=== PATIENT | female | born 1995 | race Hispanic/Latino ===

== ENCOUNTER 2022-07-18 09:32 | Emergency (ER) | payer SELFPAY ==
--- OUTSIDE RECORDS SUMMARY | 2022-07-18 09:35 | XMS REPORT | Continuity of Care Document ---
:1995 Author Organization [facility] t Address [address] [place] [address] Care Team Providers Name Role Phone LOUIS SALOMON Attending Clinician Unavailable MARSHALL AGUILA Attending Clinician Unavailable LIZZY HALE Attending Clinician Unavailable MEAGHAN PARK Attending Clinician Unavailable LAB90 Attending Clinician Unavailable Mayur SAMUEL, Meaghan Raymundo Attending Clinician [phone] PURNIMA Attending Clinician Unavailable KRISTAL Attending Clinician Unavailable Wisam Attending Clinician Unavailable PURNIMA Admitting Clinician Unavailable KRISTAL Admitting Clinician Unavailable Wisam Admitting Clinician Unavailable Payers Payer Name Policy Type Policy Number Effective Date Expiration Date Lisa azevedo BCBS 2 [id number] 2022 00:00:00 Problems Condition Condition Condition Status Onset Resolution Last Treating Co mments Source Name Details Category Date Date Treatment Clinician Date Vitamin D Vitamin D Problem Active [place] deficiency Deficiency 8-04 da 00:00: [facility] Allergies, Adverse Reactions, Alerts This patient has no known allergies or adverse reactions. Social History Smoking Status Start Date Stop Date Source Never Smoker [facility] Medications Ordered Filled Start Stop Current Ordering Indication Dosage Frequency Signature Comments Components Source Medication Medication Date Date Medication? Clinician (SIG) Name Name Vitamin D2 Vitamin D2 No 1capsul Q1W Vitamin D2 [place] 1,250 mcg 1,250 mcg e(s) 1,250 mcg da (50,000 (50,000 (50,000 [facility] p unit) unit) unit) al capsule capsule capsule Health Take 1 Take 1 Take 1 Outreac capsule capsule capsule h every week every week every week Program by oral by oral by oral route. route. route. Vital Signs Vital Name Observation Time Observation Value Comments Source BP Diastolic 2022-02-05 00:00:00 74 [facility]Hg[facility] Height 2022-02-05 00:00:00 61 [[facility]_i[facility] BMI (Body Mass 2022-02-05 00:00:00 34.6 kg/m2 [place] 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 Index) [facility] BP Systolic 2022-02-05 00:00:00 118 mm[Hg] [facility] [facility] Body Weight 2022-02-05 00:00:00 2934 [facility] BP Diastolic 2022-01-15 00:00:00 76 mm[facility]Hg[facility] Height 2022-01-15 00:00:00 61 [in_i] [place] [facility] BMI (Body Mass 2022-01-15 00:00:00 35.2 kg/m2 [facility] 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 Z[facility]astrian Index) [facility] BP Systolic 2022-01-15 00:00:00 114 mm[Hg] [place] [facility] Body Weight 2022-01-15 00:00:00 2979 [oz_av] [place] [facility] Height 2021-09-12 00:00:00 61 [in_i] [place] [facility] BP Diastolic 2020-05-01 00:00:00 79 mm[Hg] [place] [facility] Height 2020-05-01 00:00:00 61 [in_i] [place] [facility] BMI (Body Mass 2020-05-01 00:00:00 32.6 kg/m2 [place] 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 Z[facility]astrian Index) [facility] BP Systolic 2020-05-01 00:00:00 117 mm[Hg] [place] [facility] Body Weight 2020-05-01 00:00:00 172.4 [lb_av] [place] [facility] BP Diastolic 2019-12-21 00:00:00 80 mm[Hg] [place] [facility] Height 2019-12-21 00:00:00 61 [in_i] [place] [facility] BMI (Body Mass 2019-12-21 00:00:00 32.9 kg/m2 [place] 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 Zoroastrian Index) [facility] BP Systolic 2019-12-21 00:00:00 112 mm[Hg] [place] [facility] Body Weight 2019-12-21 00:00:00 174.2 [lb_av] [place] [facility] BP Diastolic 2019-11-22 00:00:00 74 mm[Hg] [place] [facility] Height 2019-11-22 00:00:00 61 [in_i] [place] [facility] BMI (Body Mass 2019-11-22 00:00:00 33.1 kg/m2 [place] 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 Zoroastrian Index) [facility] BP Systolic 2019-11-22 00:00:00 106 mm[Hg] [place] [facility] Body Weight 2019-11-22 00:00:00 175.1 [lb_av] [place] [facility] Height 2019-10-04 00:00:00 61 [in_i] [place] [facility] BP Diastolic 2019-05-25 00:00:00 84 mm[Hg] [place] [facility] Height 2019-05-25 00:00:00 61 [in_i] [place] [facility] BMI (Body Mass 2019-05-25 00:00:00 34 kg/m2 [place] 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 Zoroastrian Index) [facility] BP Systolic 2019-05-25 00:00:00 145 mm[Hg] [place] [facility] Body Weight 2019-05-25 00:00:00 180 [lb_av] [place] [facility] BP Diastolic 2019-05-17 00:00:00 76 mm[Hg] [place] [facility] Height 2019-05-17 00:00:00 61 [in_i] [place] [facility] BMI (Body Mass 2019-05-17 00:00:00 34.1 kg/m2 [place] 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 Zoroastrian Index) [facility] BP Systolic 2019-05-17 00:00:00 108 mm[Hg] [place] [facility] Body Weight 2019-05-17 00:00:00 180.3 [lb_av] [place] [facility] Procedures Procedure Date / Time Performed Performing Clinician Sourc e US, abdomen, complete 2022-02-05 00:00:00 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 US, abdomen, complete 2020-05-01 00:00:00 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 US, transvaginal 2020-05-01 00:00:00 [facility] US, transvaginal 2019-05-25 00:00:00 [facility] US, abdomen 2019-05-17 00:00:00 [facility] Tubal Ligation 2016-02-27 00:00:00 [facility] Plan of Care Planned Activity Planned Date Details Comments Source Future Scheduled Test 2022-05-12 CMP, serum or [place] [facility] 00:00:00 plasma [code = Health Outrea ch CMP, serum or Program plasma] Future Scheduled Test 2022-05-12 vitamin D, [place] 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 00:00:00 25-hydroxy, total, [facility] serum [code = Program vitamin D, 25-hydroxy, total, serum] Diagnostic Test 2022-02-05 H pylori Ag, qual [place] [facility] Pending 00:00:00 immunoassay, stool [facility] [code = H pylori Program Ag, qual immunoassay, stool] Encounters Start End Encounter Admission Attending Care Care Encounter Source Date/Time Date/Time Type Type Clinicians Facility Department ID 2022-07-25 2022-07-25 Outpatient MAKAYLA SALOMON [id number] Makayla 13:30:00 13:30:00 LOUIS Seybol d 2022-06-16 2022-06-16 Outpatient MAKAYLA AGUILA [id number] Makayla 09:15:00 09:15:00 MARSHALL Osborne ld 2022-05-27 2022-05-27 Outpatient MAKAYLA HALE [id number] Makayla 13:45:00 13:45:00 LIZZY Seybol d 2022-05-23 2022-05-23 Outpatient MAKAYLA PARK [id number] Makayla 00:00:00 00:00:00 MEAGHAN Seybol d 2022-05-20 2022-05-20 Outpatient LAB90 MAKAYLA PASCUAL [id number] Makayla 09:20:00 09:20:00 Seybol d 2022-05-20 2022-05-20 Office [place] [id number] Makayla 08:30:00 09:00:00 Visit Meaghan Kearns [id number] linda Raymundo [id number] 2022-02-05 2022-02-05 Outpatient AMBREEN_FAR [place]OH[place] [id number] [place] 11:33:00 11:33:00 HANA 0511 [facility] 2022-02-05 2022-02-05 Lena [place] - [id number] M atagor 00:00:00 00:00:00 Inocente Reyes MD: 1700 [facility] [place], [place] Outre [address] h , Ph. Program 2022-01-28 2022-01-28 Outpatient AMBREEN_FAR MEHOP [place] [id number] [place] 03:03:00 03:03:00 HANA 0503 da [facility] 2022-01-15 2022-01-15 Outpatient AMBREEN_FAR MOHOP [place] [id number] [place] 10:58:00 10:58:00 HANA 0420 [facility] 2022-01-15 2022-01-15 Lena [place] - [id number] M at[place]or 00:00:00 00:00:00 Inocente Reyes MD: 1700 [facility], [facility] [address] h , Ph. 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 2021-08-28 2021-08-28 Outpatient AMBREEN_FAR MOHOP [place] [id number] [place] 03:20:00 03:20:00 HANA 1201 [facility] 2020-06-08 2020-06-08 Outpatient AMBREEN_FAR MEHOP [facility] [id number] [place] 03:11:00 03:11:00 HANA 0911 [facility] 2020-05-03 2020-05-03 Outpatient AMBREEN_FAR MEHOP [facility] [id number] [place] 04:53:00 04:53:00 HANA 0806 [facility] 2020-05-02 2020-05-02 Outpatient AMBREEN_FAR MEHOP [facility] 746 [place] 09:27:00 09:27:00 HANA 0805 [facility] 2020-05-01 2020-05-01 Outpatient AMBREEN_FAR MOHOP [facility] 74 [place] 05:25:00 05:25:00 HANA 0804 [facility] 2020-05-01 2020-05-01 Sumaya [facility] [place] - [id number] M atagor 00:00:00 00:00:00 Karolina Hutchins, Zoroastrian [facility] ASSEMBLER MECHANICAL ORDNANCE: [address] [facility] F N, MARKET 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 2019-12-21 2019-12-21 Outpatient AMBREEN_FAR [place] [id number] [place] 05:06:00 05:06:00 HANA 0325 [facility] 2019-12-21 2019-12-21 Lena [facility] [place] - [id number] M atagor 00:00:00 00:00:00 Inocente Reyes MD: 1700 [facility], [place] Outre [address] h , Ph. 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 2019-11-14 2019-11-14 Outpatient LISTER_SHRADDHAI HOP MEHOP 746 [place] 03:49:00 03:49:00 SSA 0217 da [facility] 2019-11-10 2019-11-10 Outpatient LISTER_MELI MEHOP MEHOP [id number] [place] 03:49:00 03:49:00 SSA 0213 da [facility] 2019-10-04 2019-10-04 Outpatient LISTER_SHRADDHAI MOHOP MOHOP 746 [place] 05:22:00 05:22:00 SSA 0107 da [facility] 2019-10-04 2019-10-04 Sumaya [place] - [id number] M at[place]or 00:00:00 00:00:00 Karolina Hutchins, Zoroastrian Ep[facility] p ASSEMBLER MECHANICAL ORDNANCE: [address] N, MARKET RESEARCH EXECUTIVE [facility] [address] Progr am , Ph. 2019-07-04 2019-07-04 Outpatient Wisam MMG MMG [id number] [place] 09:31:00 09:31:00 0113 Medical Group 2019-05-25 2019-05-25 Sumaya [place] - [id number] M atagor 00:00:00 00:00:00 Karolina Hutchins, Zoroastrian Episco p ASSEMBLER MECHANICAL ORDNANCE: [address] [facility] [address] F N, MARKET RESEARCH [facility] [address] Progr am , Ph. 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 Results Test Description Test Time Test Comments Results Result Comments Source Comprehensive metabolic 2000 panel - Serum or Plasma 2021-12 00:00:00 Test Item Value Reference Range Interpretation Comme nts Glucose [Mass/volume] in Serum or Plasma (test code = 88 mg/dL 65-99 2345-7) Urea nitrogen [Mass/volume] in Serum or Plasma (test 14 mg/dL 6 -20 code = 3094-0) Creatinine [Mass/volume] in Serum or Plasma (test code 0.78 mg/dL 0.57-1.00 = 2160-0) eGFR (test code = eGFR) 106 mL/min/1.73 >59 Urea nitrogen/Creatinine [Mass Ratio] in Serum or 18 9-23 Plasma (test code = 3097-3) Sodium [Moles/volume] in Serum or Plasma (test code = 142 mmol/L 862-896 6887-2) Potassium [Moles/volume] in Serum or Plasma (test code 4.3 mmol/L 3.5-5.2 = 2823-3) Chloride [Moles/volume] in Serum or Plasma (test code = 106 mmol/L 96-106 2075-0) Carbon dioxide, total [Moles/volume] in Serum or Plasma 20 mmol/L 20-29 (test code = 2027-9) Calcium [Mass/volume] in Serum or Plasma (test code = 9.3 mg/dL 8.7-10.2 03477-7) Protein [Mass/volume] in Serum or Plasma (test code = 7.5 g/dL 6.0-8.5 2885-2) Albumin [Mass/volume] in Serum or Plasma (test code = 4.3 g/dL 3.9-5.0 1751-7) Globulin [Mass/volume] in Serum by calculation (test 3.2 g/dL 1 .5-4.5 code = 21845-9) Albumin/Globulin [Mass Ratio] in Serum or Plasma (test 1.3 1.2-2.2 code = 1759-0) Bilirubin.total [Mass/volume] in Serum or Plasma (test 0.8 mg/dL 0.0-1.2 code = 1975-2) Alkaline phosphatase [Enzymatic activity/volume] in 67 IU/L 44 -121 Serum or Plasma (test code = 6768-6) Aspartate aminotransferase [Enzymatic activity/volume] 38 IU/L 0-40 in Serum or Plasma (test code = 1920-8) Alanine aminotransferase [Enzymatic activity/volume] in 63 IU/L 0-32 H Serum or Plasma (test code = 1742-6) [facility] - Serum 2022-01-17 00:00:00 Test Item Value Reference Range Interpretation Comments Hepatitis A virus IgM Ab negative negative [Presence] in Serum or Plasma by Immunoassay (test code = 08659-7) Hepatitis B virus surface Ag negative negative [Presence] in Serum or Plasma by Immunoassay (test code = 5196-1) Hepatitis B virus core IgM Ab negative negative [Presence] in Serum or Plasma by Immunoassay (test code = 91843-0) Hepatitis C virus Ab 0.1 s/co ratio 0.0-0.9 Signal/Cutoff in Serum or Plasma by Immunoassay (test code = 68521-9) [facility] Clinic[facility]em[facility] A1c/Hemoglobin.total in [id number] 00:00:00 Test Item Value Reference Range Interpretation Comments Hemoglobin A1c/Hemoglobin.total in 5.1 % 4.8-5.6 Blood (test code = 4548-4) Glucose mean value [Mass/volume] in 100 mg/dL Blood Estimated from glycated hemoglobin (test code = 38522-2) [facility] virus surface Ab [Units/volume] in [id number] 00:00:00 Test Item Value Reference Range Interpretation Comments Hepatitis B virus <3.1 See_Comment L [Automate d message] The surface Ab system which ge nerated [Units/volume] in Serum this result transmitted (test code = 85598-2) refere nce range: immunity>9.9. T he reference range was not used to interpr et this result as normal/abnormal . [facility]25-Hydroxyvitamin D3+25- Hydroxyvitamin D2 [Mass/volume] in Serum or [id number] 00:00:00 Test Item Value Reference Range Interpretation Comments 25-Hydroxyvitamin 18.8 NG/mL 30.0-100.0 L D3+25-Hydroxyvitamin D2 [Mass/volume] in Serum or Plasma (test code = 37748-0) [facility] Clinic[facility]agin Ab [Presence] in Serum by RPR 2021-09-13 00:00:00 Test Item Value Reference Range Interpretation Comments Reagin Ab [Presence] in Serum by non reactive non reactive RPR (test code = 09764-7) [facility] ClinicHIV 1+2 Ab+HIV1 p24 Ag [Presence] in Serum or Plasma by [id number] 00:00:00 Test Item Value Reference Range Interpretation Comments HIV 1+2 Ab+HIV1 p24 Ag non reactive non reactive [Presence] in Serum or Plasma by Immunoassay (test code = 51187-7) [facility] ClinicHepatitis B virus surface Ag [Presence] in Serum or Plasma by [id number] 00:00:00 Test Item Value Reference Range Interpretation Comments Hepatitis B virus surface Ag negative negative [Presence] in Serum or Plasma by Immunoassay (test code = 5196-1) [facility] Clinic[facility] assessment panel, [id number] 00:00:00 Test Item Value Reference Range Interpretation Comments Interpretation and review of laboratory note results (test code = 60604-0) Report (test code = 77240-9) . [facility] ClinicCytology report of Cervical or vaginal smear or scraping Cyto stain.thin [id number] 00:00:00 Test Item Value Reference Range Interpretation Comments age gdln acog testing (test code = 21-29 age gdln acog testing) Cytology report of Cervical or comment vaginal smear or scraping Cyto stain (test code = 65180-3) Statement of adequacy comment [Interpretation] of Cervical or vaginal smear or scraping by Cyto stain (test code = 62544-0) Debate Director who read Cyto stain of comment Cervical or vaginal smear or scraping (test code = 54152-8) QC reviewed by: (test code = QC comment reviewed by:) Microscopic observation [Identifier] . in Unspecified specimen by Other stain (test code = 14869-7) note: (test code = note:) comment Cytology report of Cervical or comment vaginal smear or scraping Cyto stain.thin prep (test code = 47452-5) Chlamydia trachomatis rRNA negative negative [Presence] in Cervix by PILY with probe detection (test code = 20282-9) Neisseria gonorrhoeae rRNA negative negative [Presence] in Cervix by PILY with probe detection (test code = 00266-6) Trichomonas vaginalis rRNA negative negative [Presence] in Unspecified specimen by PILY with probe detection (test code = 70775-8) [facility] Clinic[facility] T4 and TSH panel - Serum or [id number] 00:00:00 Test Item Value Reference Range Interpretation Comments Thyrotropin [Units/volume] in 1.950 uIU/mL 0.450-4.500 Serum or Plasma by Detection limit <= 0.005 mIU/L (test code = 47019-7) Thyroxine (T4) free 1.02 NG/dL 0.82-1.77 [Mass/volume] in Serum or Plasma (test code = 3024-7) [facility] ClinicCBC W Auto Differential panel - Blood 2021-09-13 00:00:00 Test Item Value Reference Range Interpretation Comments Leukocytes [#/volume] in Blood 8.2 x10e3/uL 3.4-10.8 by Automated count (test code = 6690-2) Erythrocytes [#/volume] in 4.61 x10e6/uL 3.77-5.28 Blood by Automated count (test code = 789-8) Hemoglobin [Mass/volume] in 13.7 g/dL 11.1-15.9 Blood (test code = 718-7) Hematocrit [Volume Fraction] of 40.2 % 34.0-46.6 Blood by Automated count (test code = 4544-3) MCV [Entitic volume] by 87 fL 79-97 Automated count (test code = 787-2) MCH [Entitic mass] by Automated 29.7 pg 26.6-33.0 count (test code = 785-6) MCHC [Mass/volume] by Automated 34.1 g/dL 31.5-35.7 count (test code = 786-4) Erythrocyte distribution width 12.4 % 11.7-15.4 [Ratio] by Automated count (test code = 788-0) Platelets [#/volume] in Blood 235 x10e3/uL 150-450 by Automated count (test code = 777-3) Neutrophils/100 leukocytes in 68 % not estab. Blood by Automated count (test code = 770-8) Lymphocytes/100 leukocytes in 25 % not estab. Blood by Automated count (test code = 736-9) Monocytes/100 leukocytes in 5 % not estab. Blood by Automated count (test code = 5905-5) Eosinophils/100 leukocytes in 1 % not estab. Blood by Automated count (test code = 713-8) Basophils/100 leukocytes in 0 % not estab. Blood by Automated count (test code = 706-2) immature cells (test code = metal ceiling builder immature cells) Neutrophils [#/volume] in Blood 5.6 x10e3/uL 1.4-7.0 by Automated count (test code = 751-8) Lymphocytes [#/volume] in Blood 2.1 x10e3/uL 0.7-3.1 by Automated count (test code = 731-0) Monocytes [#/volume] in Blood 0.4 x10e3/uL 0.1-0.9 by Automated count (test code = 742-7) Eosinophils [#/volume] in Blood 0.1 x10e3/uL 0.0-0.4 by Automated count (test code = 711-2) Basophils [#/volume] in Blood 0.0 x10e3/uL 0.0-0.2 by Automated count (test code = 704-7) Immature granulocytes/100 1 % not estab. leukocytes in Blood by Automated count (test code = 78784-1) Immature granulocytes 0.0 x10e3/uL 0.0-0.1 [#/volume] in Blood by Automated count (test code = 52116-5) Nucleated erythrocytes/100 metal ceiling builder leukocytes [Ratio] in Blood by Automated count (test code = 72178-7) Morphology [Interpretation] in metal ceiling builder Blood Narrative (test code = 33354-8) [facility] ProgramComprehensive metabolic 2000 panel - Serum or [id number] 00:00:00 Test Item Value Reference Range Interpretation Comments Glucose [Mass/volume] in 85 mg/dL 65-99 Serum or Plasma (test code = 2345-7) Urea nitrogen [Mass/volume] 16 mg/dL 6-20 in Serum or Plasma (test code = 3094-0) Creatinine [Mass/volume] in 0.71 mg/dL 0.57-1.00 Serum or Plasma (test code = 2160-0) Glomerular filtration 116 mL/min/1.73 >59 rate/1.73 sq M.predicted among non-blacks [Volume Rate/Area] in Serum, Plasma or Blood by Creatinine-based formula (CKD-EPI) (test code = 74222-4) Glomerular filtration 134 mL/min/1.73 >59 rate/1.73 sq M.predicted among blacks [Volume Rate/Area] in Serum, Plasma or Blood by Creatinine-based formula (CKD-EPI) (test code = 68470-1) Urea nitrogen/Creatinine 23 9-23 [Mass Ratio] in Serum or Plasma (test code = 3097-3) Sodium [Moles/volume] in 139 mmol/L 134-144 Serum or Plasma (test code = 2951-2) Potassium [Moles/volume] in 4.1 mmol/L 3.5-5.2 Serum or Plasma (test code = 2823-3) Chloride [Moles/volume] in 104 mmol/L 96-106 Serum or Plasma (test code = 5-0) Carbon dioxide, total 23 mmol/L 20-29 [Moles/volume] in Serum or Plasma (test code = 2027-9) Calcium [Mass/volume] in 9.4 mg/dL 8.7-10.2 Serum or Plasma (test code = 51490-8) Protein [Mass/volume] in 7.8 g/dL 6.0-8.5 Serum or Plasma (test code = 2885-2) Albumin [Mass/volume] in 4.7 g/dL 3.9-5.0 Serum or Plasma (test code = 1751-7) Globulin [Mass/volume] in 3.1 g/dL 1.5-4.5 Serum by calculation (test code = 47998-0) Albumin/Globulin [Mass Ratio] 1.5 1.2-2.2 in Serum or Plasma (test code = 1759-0) Bilirubin.total [Mass/volume] 0.6 mg/dL 0.0-1.2 in Serum or Plasma (test code = 1975-2) Alkaline phosphatase 76 IU/L 44-121 [Enzymatic activity/volume] in Serum or Plasma (test code = 6768-6) Aspartate aminotransferase 45 IU/L 0-40 H [Enzymatic activity/volume] in Serum or Plasma (test code = 1920-8) Alanine aminotransferase 85 IU/L 0-32 H [Enzymatic activity/volume] in Serum or Plasma (test code = 1742-6) [facility] Clinic[facility] 1995 panel - Serum or Plasma 2021-09-13 00:00:00 Test Item Value Reference Range Interpretation Comments Cholesterol [Mass/volume] in Serum 168 mg/dL 100-199 or Plasma (test code = 2093-3) Triglyceride [Mass/volume] in Serum 124 mg/dL 0-149 or Plasma (test code = 2571-8) Cholesterol in HDL [Mass/volume] in 48 mg/dL >39 Serum or Plasma (test code = 2085-9) Cholesterol in VLDL [Mass/volume] 22 mg/dL 5-40 in Serum or Plasma by calculation (test code = 69066-4) Cholesterol in LDL [Mass/volume] in 98 mg/dL 0-99 Serum or Plasma by calculation (test code = 69225-2) Laboratory comment [Text] in Report metal ceiling builder Narrative (test code = 94316-1) [facility] ClinicUrinalysis macro (dipstick) panel - [id number] 16:54:00 Test Item Value Reference Range Interpretation Comments Leukocytes (test code = Leukocytes) neg Nitrite (test code = Nitrite) neg Urobilinogen (test code = 4.0 Urobilinogen) Protein (test code = Protein) neg pH (test code = pH) 6.0 Blood (test code = Blood) neg Specific [place] (test code = 1.015 Specific [place]) Ketone (test code = Ketone) 15mg/dl Bilirubin (test code = Bilirubin) neg Glucose (test code = Glucose) neg [facility] Clinic[facility] T4 and TSH panel - Serum or [id number] 00:00:00 Test Item Value Reference Range Interpretation Comments TSH, third generation (test code 2.130 uIU/mL 0.400-4.100 = TSH, third generation) free T4 (thyroxine) (test code = 1.10 NG/dL 0.80-1.90 free T4 (thyroxine)) [facility] [facility]2+25- Hydroxyvitamin D3 [Mass/volume] in Serum or [id number] 00:00:00 Test Item Value Reference Range Interpretation Comments vitamin D, 25 oh (test code = 14 NG/mL see below L vitamin D, 25 oh) [facility] - [facility] or Plasma 2019-11-23 00:00:00 Test Item Value Reference Range Interpretation Comments cholesterol (test code = 152 mg/dL <200 cholesterol) triglycerides (test code = 103 mg/dL <150 triglycerides) HDL cholesterol (test code = HDL 45 mg/dL >39 cholesterol) Cholesterol in LDL [Mass/volume] 86 mg/dL <100 in Serum or Plasma (test code = 2089-1) risk ratio LDL/HDL (test code = 1.92 ratio <3.22 risk ratio LDL/HDL) [facility] 1999 panel - Serum or [id number] 00:00:00 Test Item Value Reference Range Interpretation Comments glucose (test code = glucose) 86 mg/dL 70-99 BUN (test code = BUN) 15 mg/dL 6-20 creatinine (test code = 0.71 mg/dL 0.60-1.30 creatinine) eGFR amer. (test code 136 mL/min/1.73 >60 = eGFR amer.) eGFR non- amer. (test 118 mL/min/1.73 >60 code = eGFR non- amer.) calc BUN/creat (test code = 21 ratio 6-28 calc BUN/creat) sodium (test code = sodium) 141 mEq/L 133-146 potassium (test code = 4.3 mEq/L 3.5-5.4 potassium) chloride (test code = 105 mEq/L 95-107 chloride) carbon dioxide (test code = 21 mEq/L 19-31 carbon dioxide) calcium (test code = calcium) 9.4 mg/dL 8.5-10.5 protein, total (test code = 7.7 g/dL 6.1-8.3 protein, total) albumin (test code = albumin) 4.5 g/dL 3.5-5.2 calc globulin (test code = 3.2 g/dL 1.9-3.7 calc globulin) calc A/G ratio (test code = 1.4 ratio 1.0-2.6 calc A/G ratio) bilirubin, total (test code = 0.5 mg/dL <=1.2 bilirubin, total) alkaline phosphatase (test 70 U/L 40-112 code = alkaline phosphatase) AST (test code = AST) 22 U/L 9-40 ALT (test code = ALT) 36 U/L 5-40 [facility] A[facility]/Hemoglobin.total in [id number] 00:00:00 Test Item Value Reference Range Interpretation Comments Hemoglobin A1c/Hemoglobin.total in 5.2 % 4.2-5.6 Blood (test code = 4548-4) [facility]+Cyanocobalamin [Interpretation] in Serum or [id number] 00:00:00 Test Item Value Reference Range Interpretation Comments vitamin B-12 (test code = vitamin 751 pg/mL 200-950 B-12) folic acid (test code = folic acid) 8.9 ug/L see below [facility] Differential panel - Blood 2019-11-22 00:00:00 Test Item Value Reference Range Interpretation Comments WBC (test code = WBC) 6.5 K/uL 4.0-11.0 RBC (test code = RBC) 4.40 M/uL 3.80-5.10 hemoglobin (test code = hemoglobin) 11.3 g/dL 11.5-15.5 L hematocrit (test code = hematocrit) 33.9 % 34.0-45.0 L MCV (test code = MCV) 77.0 fL 80.0-100.0 L MCH (test code = MCH) 25.7 pg 27.0-34.0 L MCHC (test code = MCHC) 33.3 g/dL 32.0-35.5 RDW (test code = RDW) 14.0 % 11.0-15.0 neutrophils (test code = 70.0 % 40.0-74.0 neutrophils) lymphocytes (test code = 22.7 % 19.0-48.0 lymphocytes) monocytes (test code = monocytes) 5.9 % 4.0-13.0 eosinophils (test code = 0.9 % 0.0-7.0 eosinophils) basophils (test code = basophils) 0.5 % 0.0-2.0 platelet count (test code = 347 K/uL 130-400 platelet count) [facility] Clinic[facility]inal[facility] macro (dipstick) panel - [id number] 13:51:00 Test Item Value Reference Range Interpretation Comments Leukocytes (test code = Leukocytes) neg Nitrite (test code = Nitrite) positive Urobilinogen (test code = neg Urobilinogen) Protein (test code = Protein) neg pH (test code = pH) 6.5 Blood (test code = Blood) neg Specific [place] (test code = 1.025 Specific [place]) Ketone (test code = Ketone) neg Bilirubin (test code = Bilirubin) 0.2 Glucose (test code = Glucose) neg [facility] Clinic[facility] vaginosis and vaginitis DNA panel [Presence] - Vaginal fluid by Probe and signal amplification method 2019-05-29 00:00:00 Test Item Value Reference Range Interpretation Comments atopobium vaginae (test code = high - 2 A atopobium vaginae) bvab 2 (test code = bvab 2) high - 2 A megasphaera 1 (test code = high - 2 A megasphaera 1) kenia albicans, PILY (test code = negative negative kenia albicans, PILY) kenia glabrata, PILY (test code = negative negative kenia glabrata, PILY) Trichomonas vaginalis rRNA negative negative [Presence] in Unspecified specimen by Probe and target amplification method (test code = 75721-6) Chlamydia trachomatis rRNA negative negative [Presence] in Unspecified specimen by Probe and target amplification method (test code = 79909-2) Neisseria gonorrhoeae rRNA negative negative [Presence] in Unspecified specimen by Probe and target amplification method (test code = 90506-1) [facility] identified in Urine by [id number] 00:00:00 Test Item Value Reference Range Interpretation Comments culture, urine (test specimen number: code = culture, [id number] urine) [facility] identified in Urine by [id number] 00:00:00 Test Item Value Reference Range Interpretation Comments culture, urine (test specimen number: code = culture, [id number] urine) [facility]25-Hydroxyvitamin D [Mass/volume] in Serum or [id number] 00:00:00 Test Item Value Reference Range Interpretation Comments vitamin D, 25 oh (test code = 13 NG/mL see below L vitamin D, 25 oh) [facility] T[facility] and TSH panel - Serum or [id number] 00:00:00 Test Item Value Reference Range Interpretation Comments TSH, third generation (test code 1.930 uIU/mL 0.400-4.100 = TSH, third generation) free T4 (thyroxine) (test code = 1.02 NG/dL 0.80-1.90 free T4 (thyroxine)) [facility] Auto Differential panel - Blood 2019-05-19 00:00:00 Test Item Value Reference Range Interpretation Comments WBC (test code = WBC) 7.4 K/uL 4.0-11.0 RBC (test code = RBC) 4.55 M/uL 3.80-5.10 hemoglobin (test code = hemoglobin) 13.7 g/dL 11.5-15.5 hematocrit (test code = hematocrit) 39.1 % 34.0-45.0 MCV (test code = MCV) 85.9 fL 80.0-100.0 MCH (test code = MCH) 30.1 pg 27.0-34.0 MCHC (test code = MCHC) 35.0 g/dL 32.0-35.5 RDW (test code = RDW) 12.5 % 11.0-15.0 neutrophils (test code = 71.4 % 40.0-74.0 neutrophils) lymphocytes (test code = 21.7 % 19.0-48.0 lymphocytes) monocytes (test code = monocytes) 5.3 % 4.0-13.0 eosinophils (test code = 0.9 % 0.0-7.0 eosinophils) basophils (test code = basophils) 0.7 % 0.0-2.0 platelet count (test code = 292 K/uL 130-400 platelet count) [facility]25-Hydroxyvitamin D [Mass/volume] in Serum or [id number] 00:00:00 Test Item Value Reference Range Interpretation Comments vitamin D, 25 oh (test code = 13 NG/mL see below L vitamin D, 25 oh) [facility] T4 and TSH panel - Serum or [id number] 00:00:00 Test Item Value Reference Range Interpretation Comments TSH, third generation (test code 1.930 uIU/mL 0.400-4.100 = TSH, third generation) free T4 (thyroxine) (test code = 1.02 NG/dL 0.80-1.90 free T4 (thyroxine)) [facility] Auto Differential panel - Blood 2019-05-19 00:00:00 Test Item Value Reference Range Interpretation Comments WBC (test code = WBC) 7.4 K/uL 4.0-11.0 RBC (test code = RBC) 4.55 M/uL 3.80-5.10 hemoglobin (test code = hemoglobin) 13.7 g/dL 11.5-15.5 hematocrit (test code = hematocrit) 39.1 % 34.0-45.0 MCV (test code = MCV) 85.9 fL 80.0-100.0 MCH (test code = MCH) 30.1 pg 27.0-34.0 MCHC (test code = MCHC) 35.0 g/dL 32.0-35.5 RDW (test code = RDW) 12.5 % 11.0-15.0 neutrophils (test code = 71.4 % 40.0-74.0 neutrophils) lymphocytes (test code = 21.7 % 19.0-48.0 lymphocytes) monocytes (test code = monocytes) 5.3 % 4.0-13.0 eosinophils (test code = 0.9 % 0.0-7.0 eosinophils) basophils (test code = basophils) 0.7 % 0.0-2.0 platelet count (test code = 292 K/uL 130-400 platelet count) [facility] ClinicHemoglobin A1c/Hemoglobin.total in [id number] 00:00:00 Test Item Value Reference Range Interpretation Comments Hemoglobin A1c/Hemoglobin.total in 4.9 % 4.2-5.6 Blood (test code = 4548-4) [facility] Clinic[facility] A1c/Hemoglobin.total in [id number] 00:00:00 Test Item Value Reference Range Interpretation Comments Hemoglobin A1c/Hemoglobin.total in 4.9 % 4.2-5.6 Blood (test code = 4548-4) [facility] ClinicUrinalysis macro (dipstick) panel - [id number] 15:16:12 Test Item Value Reference Range Interpretation Comments Leukocytes (test code = 2+ Leukocytes) Nitrite (test code = Nitrite) negative Urobilinogen (test code = negative Urobilinogen) Protein (test code = Protein) 0.15 pH (test code = pH) 6.0 Blood (test code = Blood) negative Specific [place] (test code = 1.030 Specific [place]) Ketone (test code = Ketone) negative Bilirubin (test code = Bilirubin) negative Glucose (test code = Glucose) negative Appearance (test code = clear Appearance) Color (test code = Color) dark yellow [facility] ClinicUrinalysis macro (dipstick) panel - [id number] 15:16:12 Test Item Value Reference Range Interpretation Comments Leukocytes (test code = 2+ Leukocytes) Nitrite (test code = Nitrite) negative Urobilinogen (test code = negative Urobilinogen) Protein (test code = Protein) 0.15 pH (test code = pH) 6.0 Blood (test code = Blood) negative Specific [place] (test code = 1.030 Specific [place]) Ketone (test code = Ketone) negative Bilirubin (test code = Bilirubin) negative Glucose (test code = Glucose) negative Appearance (test code = clear Appearance) Color (test code = Color) dark yellow [facility]
[2022-07-18] MEDS ORDERED: dexAMETHasone 4 MG TAB ONE (11:08)
--- NOTE | 2022-07-18 11:08 | EDPHYS ---
Physician Documentation [facility] Name: Colleen Vallejo Age: 27 yrs Sex: Female : 1995 Arrival Date: 07/18/2022 Time: 09:33 Bed 11 Private MD: Meaghan Merchant ED Physician Alvarez Stevenson HPI: 07/18 09:50 This 27 yrs old Female presents to ER via Ambulatory with complaints of Sore jmm Throat. 09:50 The patient presents with sore throat. Onset: The symptoms/episode began/occurred jmm gradually, 1 week(s) ago. Modifying factors: The symptoms are alleviated by nothing, the symptoms are aggravated by swallowing. Associated signs and symptoms: Pertinent positives: chills, cough, dysphagia. It is unknown whether or not the patient has had similar symptoms in the past. Historical: - Allergies: 07/19 07:43 No Known Allergies; iw - Social history:: Smoking status: unknown. ROS: 07/18 09:50 Cardiovascular: Negative for chest pain, palpitations, and edema, Respiratory: Negative [facility] for shortness of breath, cough, wheezing, and pleuritic chest pain. Constitutional: Positive for body aches, chills. ENT: Positive for sore throat. All other systems are negative. Exam: 09:50 Constitutional: This is a well developed, well nourished patient who is awake, alert, jmm and in no acute distress. Head/Face: atraumatic. Eyes: EOMI, no conjunctival erythema appreciated 09:50 Neck: Trachea midline, Supple Chest/axilla: Normal chest wall appearance and motion. Cardiovascular: Regular rate and rhythm. No edema appreciated Respiratory: Normal respirations, no respiratory distress appreciated Abdomen/GI: Non distended Back: Normal ROM Skin: General appearance color normal MS/ Extremity: Moves all extremities, no obvious deformities appreciated, no edema noted to the lower extremities Neuro: Awake and alert Psych: Behavior is normal, Mood is normal, Patient is cooperative and pleasant 09:50 ENT: Posterior pharynx: Tonsils: bilaterally enlarged, with erythema, with exudate, erythema, that is moderate. MDM: 09:50 Patient medically screened. [facility] 11:05 Data reviewed: vital signs, nurses notes. Counseling: I had a detailed discussion with jmdaisy the patient and/or guardian regarding: the historical points, exam findings, and any diagnostic results supporting the discharge/admit diagnosis, lab results, the need for outpatient follow up, to return to the emergency department if symptoms worsen or persist or if there are any questions or concerns that arise at home. ED course: Patient is alert and non toxic in appearance in the ED. No signs of resp distress. I do not suspect dredge captain. patient advised to follow up with pcp and otherwise given strict return precautions. Patient understood and agrees with the plan of care. . 07/18 10:03 Order name: Strep; Complete Time: 10:51 [facility] 07/18 10:53 Order name: Throat Culture EDMS Administered Medications: 11:13 Drug: Decadron (dexamethasone) 10 mg Route: PO; iw 11:20 Follow up: Response: No adverse reaction iw Disposition Summary: 07/18/22 11:07 Discharge Ordered Location: Home [facility] Condition: Stable [facility] Diagnosis - Acute pharyngitis, unspecified [facility] Followup: jmm - With: Private Physician - When: 2 - 3 days - Reason: Recheck today's complaints, Continuance of care, Re-evaluation by your physician Discharge Instructions: - Discharge Summary Sheet [facility] - Pharyngitis [facility] Forms: - Medication Reconciliation Form [facility] - Thank You Letter [facility] - Antibiotic Education [facility] - Prescription Opioid Use [facility] Prescriptions: - Zithromax Z-Andreas 250 mg Oral Tablet - take 1 tablet by ORAL route as directed for 5 days Day 1 - take two (2) tablets m one time. Day 2, 3, 4 , 5 take one (1) tablet once daily.; 6 tablet; Refills: 0, Product Selection Permitted Addendum: 07/22/2022 04:05 Co-signature as Attending Physician, Alvarez Stevenson MD I agree with the assessment and c tan plan of care. Signatures: Dispatcher [employer] Alvarez Phoenix MD MD cha Mickail, Joel, PA PA jmm Williams, Irene, RN RN iw
--- NOTE | 2022-07-18 11:08 | ER ---
Nurse's Notes [facility] Name: Colleen Vallejo Age: 27 yrs Sex: Female : 1995 Arrival Date: 07/18/2022 Time: :33 Bed 11 Private MD: Meaghan Merchant Diagnosis: Acute pharyngitis, unspecified Presentation: 07/18 10:47 Chief complaint: Patient states: body aches, sore throat this week, her son was iw diagnosed with strep throat. Coronavirus screen: Client presents with at least one sign or symptom that may indicate coronavirus-19. Ebola Screen: Patient negative for fever greater than or equal to 101.5 degrees Fahrenheit, and additional compatible Ebola Virus Disease symptoms Patient denies exposure to infectious person. Patient denies travel to an Ebola-affected area in the 21 days before illness onset. No symptoms or risks identified at this time. Initial Sepsis Screen: Does the patient meet any 2 criteria? No. Patient's initial sepsis screen is negative. Does the patient have a suspected source of infection? No. Patient's initial sepsis screen is negative. Risk Assessment: Do you want to hurt yourself or someone else? Patient reports no desire to harm self or others. Onset of symptoms was July 15, 2022. 10:47 Method Of Arrival: Ambulatory iw 10:47 Acuity: ARMANDO 4 iw Triage Assessment: 11:00 General: Appears in no apparent distress. Behavior is calm, cooperative. iw Historical: - Allergies: 07/19 07:43 No Known Allergies; iw - Social history:: Smoking status: unknown. Screenin/21 11:40 Abuse screen: Denies threats or abuse. Denies injuries from another. Nutritional iw screening: No deficits noted. Tuberculosis screening: No symptoms or risk factors identified. Fall Risk None identified. Assessment: 11:00 General: Appears in no apparent distress. Pain: Complains of pain in throat. Neuro: iw Level of Consciousness is awake, alert, obeys commands, Oriented to person, place, time, situation, Moves all extremities. Cardiovascular: Patient's skin is warm and dry. Respiratory: Airway is patent Respiratory effort is even, unlabored, Breath sounds are clear bilaterally. EENT: Throat is reddened. ED Course: :33 Patient arrived in ED. mr 09:33 Meaghan Merchant is Private Physician. mr 09:34 [facility] 09:34 Alvarez Stevenson MD is Attending Physician. [facility] 10:04 Christina Vides, RN is Primary Nurse. iw 10:48 Triage completed. iw 11:00 Arm band placed on. iw 11:40 No provider procedures requiring assistance completed. Patient did not have IV access iw during this emergency room visit. Administered Medications: 11:13 Drug: Decadron (dexamethasone) 10 mg Route: PO; iw 11:20 Follow up: Response: No adverse reaction iw Outcome: 11:07 Discharge ordered by . jmm 11:40 Discharged to home ambulatory. iw 11:40 Discharge instructions given to patient, Instructed on discharge instructions, follow up and referral plans. Demonstrated understanding of instructions, follow-up care, medications, Prescriptions given X 1. 11:40 Condition: good iw 11:41 Patient left the ED. iw Signatures: Kalpesh Christianson PA PA [facility] Jim Senait mr Christina Vides, RN RN iw
== END 2022-07-18 11:41 | disposition home or self-care (01) ==
LOC: ER 09:32
DX: J02.9 Acute pharyngitis, unspecified (principal)
CPT/HCPCS: 87070; 87081; 99283; J8540

== ENCOUNTER 2022-11-16 01:56 | Emergency (ER) | payer BC ==
--- OUTSIDE RECORDS SUMMARY | 2022-11-16 02:00 | XMS REPORT | Continuity of Care Document ---
:1995 Author Organization [facility] t Address [address] [place] [address] Care Team Providers Name Role Phone LOGAN WHEATLEY Attending Clinician Unavailable Lorie Hudson Attending Clinician Unavailable Becca_Alverto Attending Clinician Unavailable LOUIS SALOMON Attending Clinician Unavailable Wisam Attending Clinician Unavailable LAB90 Attending Clinician Unavailable MALLY PARK Attending Clinician Unavailable MARSHALL AGUILA Attending Clinician Unavailable LIZZY HALE Attending Clinician Unavailable Mayur SAMUEL, Mally Raymundo Attending Clinician [phone] JAIME_ULISESA Attending Clinician Unavailable ANDRIY TAVAREZ Attending Clinician Unavailable CHAPARRO UMANA Attending Clinician Unavailable DONA FRANKLIN Attending Clinician Unavailable KRISTAL Attending Clinician Unavailable SUMAYA ESCOBAR Attending Clinician Unavailable MIRIAN GUTHRIE Attending Clinician Unavailable RACHEL WELLINGTON Attending Clinician Unavailable BENNY SCHOFIELD Attending Clinician Unavailable LISA NGO Attending Clinician Unavailable EVONNE WARD Attending Clinician Unavailable Gabriel Rubin Attending Clinician Unavailable Dusty Lozano Attending Clinician Unavailable ODILIA ADEN Attending Clinician Unavailable KIAH GOMEZ Attending Clinician Unavailable KEON WU Attending Clinician Unavailable JINNY POOLE Attending Clinician Unavailable TASH VALERA Attending Clinician Unavailable KONRAD GARNETT Attending Clinician Unavailable Jake Guidry Attending Clinician Unavailable ETHAN ROD Attending Clinician Unavailable ABEL PINTO Attending Clinician Unavailable EDWIGE CANO Attending Clinician Unavailable LON PRUITT Attending Clinician Unavailable Keri Admitting Clinician Unavailable Wisam Admitting Clinician Unavailable PURNIMA Admitting Clinician Unavailable KRISTAL Admitting Clinician Unavailable Lorie Hudson Admitting Clinician Unavailable Jake Guidry Admitting Clinician Unavailable Payers Payer Name Policy Type Policy Number Effective Date Expiration Date S roberto carlos BCBS 2 [id number] 2022 00:00:00 [place] [id number] 2021 00:00:00 [place] Problems Condition Condition Condition Status Onset Resolution Last Treating Co mments Source Name Details Category Date Date Treatment Clinician Date Vitamin D Vitamin D Problem Active [place] deficiency Deficiency 05-01 [facility] 00:[facility] Acute lyme Acute Lyme Problem Active [facility] disease Disease 03-19 da 00:00: Medical 00 Group Microcytic Microcytic Problem Active [facility] hypochromi Hypochromi da c anemia c Anemia Medica l Group Steatosis Steatosis Problem Active [place] of liver of Liver [facility] Abdominal Abdominal Problem Active [facility] [place] pain Pain [facility] No known No known Disease Kelse y active active Seybold problems problems - Externa l Allergies, Adverse Reactions, Alerts This patient has no known allergies or adverse reactions. Social History Social Habit Start Date Stop Date Quantity Comments Source Alcohol intake 2022-10-06 2022-10-06 Ex-drinker Makayla wilburn - 00:00:00 00:00:00 (finding) External Sex Assigned At [birth year] Makayla mckeon - 00:00:00 00:00:00 External Smoking Status Start Date Stop Date Source Never smoked tobacco Makaylasamuel Lopez old - External Medications Ordered Filled Start Stop Current Ordering Indication Dosage Frequency Signature Comments Components Source Medication Medication Date Date Medication? Clinician (SIG) Name Name Ibuprofen Yes 1 po q 8 Suzy ey 800 MG oral 1-09 prn with Seyb old Tablet 00:00: food - 00 Externa l Ergocalcife 2021-09 Yes [id number] Take 1 Makayla rol 1.25 MG 1-30 capsule Seybo ld (10930 UT) 00:00: (50,000 - oral 00 units Externa Capsule total) by l mouth once a week Ergocalcife 2021-09 Yes 1{capsu 1 capsule Makayla rol 1.25 MG 1-29 le} Seybold (82361 UT) 15:00: - oral 01 Externa Capsule l Azithromyci 2021-09 Yes 500mg Take 500 K elsey n 250 MG 0-21 mg by Seybold oral Tablet 00:00: mouth See - 00 Admin Externa Instructio l ns TAKE 2 TABLETS BY MOUTH ON DAY 1, THEN 1 TABLET DAILY ON DAYS 2 TO 5. Azithromyci 2021-09 Yes 500mg Take 500 K elsey n 250 MG 0-21 mg by Seybold oral Tablet 00:00: mouth See - 00 Admin Externa Instructio l ns TAKE 2 TABLETS BY MOUTH ON DAY 1, THEN 1 TABLET DAILY ON DAYS 2 TO 5. Nitrofurant 2021- No [id number] 100mg Take 1 Makayla oin Monohyd 8- 11-29 capsule Seyb old Macro 100 00:00: 00:00 (100 mg - MG oral 00 :00 total) by Externa Capsule mouth 2 l times daily cefuroxime cefuroxime No 1 Q12H cefuroxime [place] axetil 500 axetil 500 axetil 500 da mg tablet mg tablet mg tablet Medical Take 1 Take 1 Take 1 Group tablet tablet tablet every 12 every 12 every 12 hours by hours by hours by oral route oral route oral route for 7 days. for 7 days. for 7 days. Vitamin D2 Vitamin D2 No 1capsul Q1W Vitamin D2 [place] 1,250 mcg 1,250 mcg e(s) 1,250 mcg da (50,000 (50,000 (50,000 [facility] unit) unit) unit) al capsule capsule capsule Health Take 1 Take 1 Take 1 Outreac capsule capsule capsule h every week every week every week Program by oral by oral by oral route. route. route. ergocalcife ergocalcife No ergocalcif [place] rol rol ann da (vitamin (vitamin (vitamin Med ical D2) 1,250 D2) 1,250 D2) 1,250 Group mcg (50,000 mcg (50,000 mcg unit) unit) (50,000 capsule capsule unit) TAKE ONE TAKE ONE capsule (1) (1) TAKE ONE CAPSULE(S) CAPSULE(S) (1) BY MOUTH BY MOUTH CAPSULE(S) EVERY WEEK. EVERY WEEK. BY MOUTH EVERY WEEK. ibuprofen ibuprofen No ibuprofen [place] 800 mg 800 mg 800 mg da tablet TAKE tablet TAKE tablet Medical ONE (1) ONE (1) TAKE ONE Group TABLET(S) TABLET(S) (1) BY MOUTH BY MOUTH TABLET(S) EVERY EIGHT EVERY EIGHT BY MOUTH HOURS WITH HOURS WITH EVERY FOOD FOOD EIGHT NEEDED. NEEDED. HOURS WITH FOOD NEEDED. Vital Signs Vital Name Observation Time Observation Value Comments Source BP Diastolic 2022-11-12 00:00:00 80 mm[Hg] [facility] Height 2022-11-12 00:00:00 61 [in_i] [facility] BMI (Body Mass 2022-11-12 00:00:00 34.3 kg/m2 [facility] Medical Index) Group BP Systolic 2022-11-12 00:00:00 115 mm[Hg] [facility] Body Weight 2022-11-12 00:00:00 181.6 [lb_av] [facility] Systolic blood 2022-10-06 15:22:00 115 mm[Hg] Makayla Seybold - pressure External Diastolic blood 2022-10-06 15:22:00 78 mm[Hg] Dorothy y Seybold - pressure External Heart rate 2022-10-06 15:22:00 71 /min Makayla Gonzalez eybold - External Body weight 2022-10-06 15:22:00 83.734 kg Makayla Gonzalez eybold - External BMI 2022-10-06 15:22:00 34.88 kg/m2 Makayla Gonzalez eybold - External Systolic blood 2022-08-26 20:57:00 116 mm[Hg] Makayla Seybold - pressure External Diastolic blood 2022-08-26 20:57:00 84 mm[Hg] Dorothy buckner Seybold - pressure External Heart rate 2022-08-26 20:57:00 94 /min Makayla Gonzalez eybold - External Body temperature 2022-08-26 20:57:00 36.89 Anisa Suzy boogie Seybold - External Respiratory rate 2022-08-26 20:57:00 15 /min Suzy boogie Seybold - External Body height 2022-08-26 20:57:00 154.9 cm Makayla Gonzalez eybold - External Body weight 2022-08-26 20:57:00 85.73 kg Makayla Gonzalez eybold - External BMI 2022-08-26 20:57:00 35.71 kg/m2 Makayla Gonzalez eybold - External BP Diastolic 2022-02-05 00:00:00 74 mm[Hg] [facility] Height 2022-02-05 00:00:00 61 [in_i] [facility] BMI (Body Mass 2022-02-05 00:00:00 34.6 kg/m2 [facility] Index[facility] BP Systolic 2022-02-05 00:00:00 118 mm[Hg] [facility] Body Weight 2022-02-05 00:00:00 2934 [oz_av] [facility] BP Diastolic 2022-01-15 00:00:00 76 mm[Hg] [facility] Height 2022-01-15 00:00:00 61 [in_i] [facility] BMI (Body Mass 2022-01-15 00:00:00 35.2 kg/m2 [facility] Index) [facility] BP Systolic 2022-01-15 00:00:00 114 mm[Hg] [facility] Body Weight 2022-01-15 00:00:00 2979 [oz_av] [facility] Height 2021-09-12 00:00:00 61 [in_i] [facility] BP Diastolic 2020-05-01 00:00:00 79 mm[Hg] [facility] Height 2020-05-01 00:00:00 61 [in_i] [facility] BMI (Body Mass 2020-05-01 00:00:00 32.6 kg/m2 [facility] Index[facility] BP Systolic 2020-05-01 00:00:00 117 mm[Hg] [facility] Body Weight 2020-05-01 00:00:00 172.4 [lb_av] [facility] BP Diastolic 2019-12-21 00:00:00 80 mm[Hg] [facility] Height 2019-12-21 00:00:00 61 [in_i] [facility] BMI (Body Mass 2019-12-21 00:00:00 32.9 kg/m2 [facility] Index[facility] BP Systolic 2019-12-21 00:00:00 112 mm[Hg] [facility] Body Weight 2019-12-21 00:00:00 174.2 [lb_av] [facility] BP Diastolic 2019-11-22 00:00:00 74 mm[Hg] [facility] Height 2019-11-22 00:00:00 61 [in_i] [facility] BMI (Body Mass 2019-11-22 00:00:00 33.1 kg/m2 [facility] Index) [facility] BP Systolic 2019-11-22 00:00:00 106 mm[Hg] [facility] Body Weight 2019-11-22 00:00:00 175.1 [lb_av] [facility] Height 2019-10-04 00:00:00 61 [in_i] [facility] BP Diastolic 2019-05-25 00:00:00 84 mm[Hg] [facility] Height 2019-05-25 00:00:00 61 [in_i] [facility] BMI (Body Mass 2019-05-25 00:00:00 34 kg/m2 [facility] Index[facility] BP Systolic 2019-05-25 00:00:00 145 mm[Hg] [facility] Body Weight 2019-05-25 00:00:00 180 [lb_av] [facility] BP Diastolic 2019-05-17 00:00:00 76 mm[Hg] [facility] Height 2019-05-17 00:00:00 61 [in_i] [facility] BMI (Body Mass 2019-05-17 00:00:00 34.1 kg/m2 [facility] Index) [facility] BP Systolic 2019-05-17 00:00:00 108 mm[Hg] [facility] Body Weight 2019-05-17 00:00:00 180.3 [lb_av] [facility] Procedures Procedure Date / Time Performed Performing Clinician Sourc e US, transvaginal 2022-11-12 00:00:00 Inocente Mustafa ed[facility] Group US, abdomen, complete 2022-02-05 00:00:00 [facility] US, abdomen, complete 2020-05-01 00:00:00 [facility] US, transvaginal 2020-05-01 00:00:00 [facility] US, transvaginal 2019-05-25 00:00:00 [facility] US, abdomen 2019-05-17 00:00:00 [facility] Colonoscopy 2017-02-26 00:00:00 [facility] Tubal Ligation [facility] Plan of Care Planned Activity Planned Date Details Comments Source Diagnostic Test 2022-11-12 urinalysis, [facility] Pending 00:00:00 dipstick [code = Group urinalysis, dipstick] Diagnostic Test 2022-11-12 culture, urine [facility] Pending 00:00:00 [code = culture, Group urine] Future Scheduled Test 2022-05-12 CMP, serum or [facility] 00:00:00 plasma [code = Health Outrea ch CMP, serum or Program plasma] Future Scheduled Test 2022-05-12 vitamin D, [facility] 00:00:00 25-hydroxy, total, [facility] serum [code = Program vitamin D, 25-hydroxy, total, serum] Diagnostic Test 2022-02-05 H pylori Ag, qual [facility] Pending 00:00:00 immunoassay, stool [facility] [code = H pylori Program Ag, qual immunoassay, stool] Encounters Start End Encounter Admission Attending Care Care Encounter Source Date/Time Date/Time Type Type Clinicians Facility Department ID 2022-11-13 2022-11-13 Outpatient LOGAN WHEATLEY MAKAYLA PASCUAL [id number] Makayla 16:30:00 16:30:00 Seybol d 2022-11-12 2022-11-12 Outpatient [facility] [id number] [place] 15:57:00 15:57:00 Lorie -[id number] da [facility] 2022-11-12 2022-11-12 Outpatient Becca_L MMG MMG [id number] [place] 00:00:00 00:00:00 0215 da [facility] 2022-11-12 2022-11-12 Lorie MMG [place] - [id number] [place] [facility] 00:00:00 00:00:00 Alize De Oliveira Medica alverto MD: [address] [place] [address] O[address], [place] [address] , Ph. [phone] 2022-10-22 2022-10-22 Outpatient MAKAYLA SAOLMON [id number] Makayla 15:45:00 15:45:00 LOUIS Seybol d 2022-10-15 2022-10-15 Outpatient Wisam MMG MMG [id number] [place] 00:00:00 00:00:00 0118 [facility] 2022-10-14 2022-10-14 Outpatient MAKYALA SALOMON [id number] Makayla 00:00:00 00:00:00 LOUIS Seybol d 2022-10-09 2022-10-09 Outpatient MAKAYLA PASCUAL [id number] Makayla 08:00:00 08:00:00 Seybol d 2022-10-09 2022-10-09 Outpatient MAKAYLA SALOMON [id number] Makayla 00:00:00 00:00:00 LOUIS Seybol d 2022-10-06 2022-10-06 Outpatient MAKAYLA SALOMON [id number] Makayla 09:15:00 09:15:00 LOUIS Seybol d 2022-08-26 2022-08-26 Outpatient LAB90 MAKAYLA PASCUAL [id number] Makayla 15:40:00 15:40:00 Seybol d 2022-08-26 2022-08-26 Outpatient MAKAYLA PARK [id number] Makayla 14:45:00 14:45:00 MALLY Seybol d 2022-07-25 2022-07-25 Outpatient AIMEMAKAYLA [id number] Mkaayla 13:30:00 13:30:00 LOUIS Seybol d 2022-06-16 2022-06-16 Outpatient MAKAYLA AGUILA [id number] Makayla 09:15:00 09:15:00 MARSHALL Seybo ld 2022-05-27 2022-05-27 Outpatient GEOFFREYMAKAYLA [id number] Makayla 13:45:00 13:45:00 LIZZY Seybol d 2022-05-23 2022-05-23 Outpatient MAKAYLA PARK [id number] Makayla 00:00:00 00:00:00 MALLY Seybol d 2022-05-20 2022-05-20 Outpatient LAB90 MAKAYLA PASCUAL [id number] Makayla 09:20:00 09:20:00 Seybol d 2022-05-20 2022-05-20 Office [place] [id number] Makayla 08:30:00 09:00:00 Visit Mally Kearns [id number] Se linda Raymundo [id number] 2022-02-05 2022-02-05 Outpatient JEDREEN_KEIRY [facility] 74 [place] 11:33:00 11:33:00 [facility] 2022-02-05 2022-02-05 Lena [facility] [place] - [id number] M [facility] 00:00:00 00:00:00 Inocente Reyes MD: 1700 [facility] [place] [facility] [place] [address] h , Ph. Program 2022-01-28 2022-01-28 Outpatient AMBREEN_KEIRY [facility] 74 [place] 03:03:00 03:03:00 HANA 0503 [facility] 2022-01-15 2022-01-15 Outpatient AMBREEN_KEIRY [facility] [id number] [place] 10:58:00 10:58:00 HANA 0420 [facility] 2022-01-15 2022-01-15 Lena [place] - [id number] [facility] 00:00:00 00:00:00 Inocente Reyes MD: 1700 [facility] Vitalye, [place], [place] Outre [address] h , Ph. Program 2021-09-23 2021-09-23 Emergency ER , [facility] [id number] [place] 06:33:00 09:32:00 [facility] -[id number] Critical access hospital 2021-09-12 2021-09-12 Outpatient AMBREEN_[facility] 74 [place] 01:25:00 01:25:00 HANA 1216 [facility] 2021-09-12 2021-09-12 Sumaya [place] - [id number] atagor 00:00:00 00:00:00 Karolina Hutchins, [facility] OUTPATIENT SURGERY RN: [address] 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 2021-08-28 2021-08-28 Outpatient AMBREEN_KEIRY [facility] 74 [place] 03:20:00 03:20:00 HANA 1201 [facility] 2021-07-15 2021-07-15 Emergency ER CHAPARRO UMANA [facility] [id number] [place] 16:19:00 18:30:00 -[id number] Critical access hospital 2020-09-20 2020-09-20 Emergency ER NOEMI, [facility] [id number] [place] 00:23:00 02:31:00 DONA [id number] Critical access hospital 2020-06-08 2020-06-08 Outpatient AMBREEN_[facility]AR [facility] ME[facility] [id number] [place] 03:11:00 03:11:00 HANA 0911 [facility] 2020-05-03 2020-05-03 Outpatient AMBREEN_FAR MEHOP MEHOP [id number] [place] 04:53:00 04:53:00 HANA 0806 [facility] 2020-05-02 2020-05-02 Outpatient AMBREEN_FAR MEHOP MEHOP [id number] [place] 09:27:00 09:27:00 HANA 0805 [facility] 2020-05-01 2020-05-01 Outpatient AMBREEN_FAR MEHOP LAHOP [id number] [place] 05:25:00 05:25:00 HANA 0804 [facility] 2020-05-01 2020-05-01 Sumaya [facility] [place] - [id number] M [facility] 00:00:00 00:00:00 Karolina Hutchins, [facility] OUTPATIENT SURGERY RN: [address] H[address] LAHOP al Jinny F N, AUTO TECHNICIAN MECHANIC [facility] [address] [facility] , Ph. 2019-12-21 2019-12-21 Outpatient AMBREEN_[facility] 746 [place] 05:06:00 05:06:00 HANA 0325 [facility] 2019-12-21 2019-12-21 Lena [facility] [place] - [id number] M [facility] 00:00:00 00:00:00 Inocente Reyes MD: 1700 [facility] [place] H[facility] - LAHOP radha [employer], [place], [place] Outre [address] h , Ph. 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 2019-11-14 2019-11-14 Outpatient LUZ_VINITA [facility] LA[facility]OP [id number] [place] 03:49:00 03:49:00 SSA 0217 [facility] 2019-11-10 2019-11-10 Outpatient LUZ_VINITA GRESHAMHOP MEHOP [id number] [place] 03:49:00 03:49:00 SSA 0213 [facility] 2019-10-04 2019-10-04 Outpatient LUZ_VINITA [place] LA[facility]OP [id number] [place] 05:22:00 05:22:00 SSA 0107 [facility] 2019-10-04 2019-10-04 Sumaya [place] - [id number] M [place] 00:00:00 00:00:00 Karolina Hutchins, [facility] OUTPATIENT SURGERY RN: [address] [facility] [address] F N, AUTO TECHNICIAN MECHANIC [facility] [place] [address] Lucio am , Ph. 2019-07-04 2019-07-04 Outpatient Wisam MMG MMG [id number] [place] 09:31:00 09:31:00 0113 Medical Group 2019-05-25 2019-05-25 Outpatient JOAQUIN ESCOBAR, [facility] [id number] [place] 16:30:00 16:30:00 SUMAYA -[id number] Critical access hospital 2019-05-25 2019-05-25 Sumaya [place] - [id number] M [place] 00:00:00 00:00:00 Karolina Hutchins, [facility] OUTPATIENT SURGERY RN: [address] [facility] [address] F N, AUTO TECHNICIAN [place] [facility] [place] [address] Progr am , Ph. 2019-05-242019-05-24 Emergency ER [place], [facility] [id number] [place] 09:45:00 12:14:00 MIRIAN -[id number] Critical access hospital 2019-05-17 2019-05-17 Lena [place] - [id number] M [facility] 00:00:00 00:00:00 Inocente Reyes MD: [id number] [facility] utility helicopter repairer [place] [address] [facility] - [facility] [address] [phone] , Ph. 2019-05-09 2019-05-10 Emergency ER ELIZ, [facility] [id number] [place] 19:24:00 00:02:00 RACHEL -[id number] Critical access hospital 2019-01-04 2019-01-04 Outpatient JOAQUIN ESCOBAR, [facility] [id number] [place] 10:33:00 10:33:00 SUMAYA -[id number] Critical access hospital 2018-12-08 2018-12-08 Outpatient JOAQUIN ESCOBAR, [facility] [id number] [place] 07:19:00 07:19:00 SUMAYA -[id number] Critical access hospital 2018-07-07 2018-07-07 Outpatient JOAQUIN ESCOBAR, [facility] [id number] [place] 16:04:00 16:04:00 SUMAYA -[id number] Critical access hospital 2018-03-10 2018-03-10 Outpatient JOAQUIN PARRYESE BENNY [facility] [id number] [place] 09:18:00 09:18:00 -[id number] Critical access hospital 2018-02-06 2018-02-07 Emergency ER JENI, [facility] [id number] [place] 20:55:00 00:47:00 LISA -[id number] Critical access hospital 2017-07-09 2017-07-09 Outpatient JOAQUIN ESCOBAR, [facility] [id number] [place] 11:49:00 11:49:00 SUMAYA -[id number] Critical access hospital 2017-06-23 2017-06-23 Outpatient JOAQUIN WARD, [facility] [id number] [place] 10:22:00 10:22:00 EVONNE -[id number] Critical access hospital 2017-03-20 2017-03-20 Outpatient Gabriel Flood [facility] [id number] [place] 10:42:00 10:42:00 -[id number] Critical access hospital 2016-12-17 2016-12-17 Outpatient Gabriel Flood [facility] [id number] [place] 14:51:00 14:51:00 -[id number] Critical access hospital 2016-11-28 2016-11-28 Emergency ER JENI, [facility] [id number] [place] 18:42:00 22:24:00 LISA -[id number] Critical access hospital 2016-10-02 2016-10-02 Emergency ER JENI, [facility] [id number] [place] 19:59:00 21:54:00 LISA -[id number] Critical access hospital 2016-07-02 2016-07-02 Outpatient JOAQUIN ESCOBAR, [facility] [id number] [place] 16:35:00 16:35:00 SUMAYA -[id number] Critical access hospital 2016-06-11 2016-06-11 Outpatient EL Marta, [facility] [id number] [place] 14:36:00 14:36:00 Dusty -[id number] Critical access hospital 2016-03-13 2016-03-13 Outpatient EL Becca, [facility] [id number] [place] 06:14:00 06:14:00 Lorie -[id number] Critical access hospital 2016-01-10 2016-01-11 Emergency ER OTINWA, [facility] [id number] [place] 22:28:00 02:56:00 ODILIA -[id number] Critical access hospital 2016-01-07 2016-01-08 Inpatient ER Becca, [facility] [id number] [place] 02:58:00 12:15:00 Lorie -[id number] Critical access hospital 2016-01-03 2016-01-03 Emergency ER Pitkin, [facility] [id number] [place] 14:09:00 15:45:00 Lorie -[id number] Critical access hospital 2015-12-31 2016-01-01 Inpatient ER Becca[facility] [id number] [place] 21:20:00 07:50:00 Lorie -[id number] Critical access hospital 2015-12-24 2015-12-24 Emergency ER Becca, [facility] [id number] [place] 21:07:00 22:13:00 Lorie -[id number] Critical access hospital 2015-12-19 2015-12-19 Emergency ER Becca, [facility] [id number] [place] 14:17:00 19:51:00 Lorie -[id number] Critical access hospital 2015-11-14 2015-11-14 Emergency ER Pitkin, [facility] [id number] [place] 17:01:00 20:40:00 Lorie -[id number] Critical access hospital 2015-10-11 2015-10-11 Emergency ER Becca, [facility] [id number] [place] 17:05:00 21:05:00 Lorie -[id number] Critical access hospital 2015-06-06 2015-06-06 Emergency ER OWO, TOKS [facility] [id number] [place] 13:04:00 15:20:00 -[id number] Critical access hospital 2015-06-02 2015-06-02 Emergency ER UGORJI, [facility] [id number] [place] 13:40:00 17:03:00 CLETARYN -[id number] Critical access hospital 2015-05-23 2015-05-23 Emergency ER BASSETT, [facility] [id number] [place] 15:59:00 17:55:00 LISA -[id number] Critical access hospital 2014-05-27 2014-05-27 Emergency ER JAZMIN, [facility] [id number] [place] 03:14:00 06:07:00 KEON -[id number] Critical access hospital 2014-04-22 2014-04-24 Inpatient ER Becca, [facility] [id number] [place] 19:00:00 10:30:00 Lorie -[id number] Critical access hospital 2014-04-11 2014-04-11 Emergency ER Becca, [facility] [id number] [place] 22:51:00 23:55:00 [facility] -[id number] Critical access hospital 2014-04-08 2014-04-09 Inpatient ER Becca, [facility] [id number] [place] 19:20:00 07:45:00 Lorie -[id number] Critical access hospital 2014-04-03 2014-04-03 Emergency ER Pitkin, [facility] [id number] [place] 07:32:00 18:50:00 [facility] -[id number] Critical access hospital 2014-03-31 2014-03-31 Emergency ER Pitkin, [facility] [id number] [place] 15:31:00 18:45:00 [id number] Critical access hospital 2014-03-20 2014-03-20 Emergency ER Pitkin, [facility] [id number] [place] 14:13:00 17:00:00 [facility] -[id number] Critical access hospital 2014-03-03 2014-03-03 Emergency ER Pitkin, [facility] [id number] [place] 16:34:00 18:35:00 [facility] -[id number] Critical access hospital 2014-02-05 2014-02-05 Emergency ER Pitkin, [facility] [id number] [place] 17:04:00 19:20:00 Lorie -[id number] Critical access hospital 2013-10-28 2013-10-28 Emergency ER UGORJI, [facility] [id number] [place] 18:22:00 22:58:00 KIAH -[id number] Critical access hospital 2013-09-09 2013-09-10 Emergency ER JAYES, [facility] [id number] [place] 22:52:00 01:50:00 JINNY -[id number] Critical access hospital 2013-09-05 2013-09-05 Emergency ER TAVAREZ, [facility] [id number] 73 [place] 17:55:00 21:23:00 WAS -[id number] Critical access hospital 2013-08-09 2013-08-10 Emergency ER JAZMIN, [facility] [id number] [place] 22:27:00 01:18:00 KEON -[id number] Critical access hospital 2013-07-14 2013-07-14 Emergency ER TAVAREZ, [facility] [id number] [place] 18:12:00 19:43:00 WAS -[id number] Critical access hospital 2013-07-04 2013-07-04 Emergency ER JAZMIN, [facility] [id number] [place] 19:14:00 20:26:00 KEON -[id number] Critical access hospital 2013-06-29 2013-06-29 Emergency ER BA, TASH [facility] [id number] [place] 19:50:00 21:11:00 -[id number] Critical access hospital 2013-06-14 2013-06-14 Emergency ER BA, TASH [facility] [id number] [place] 03:48:00 05:05:00 -[id number] Critical access hospital 2013-03-05 2013-03-05 Emergency ER UGORJI, [facility] [id number] 73 [place] 07:31:00 11:15:00 KIAH -[id number] Critical access hospital 2013-02-27 2013-02-27 Emergency ER TAVAREZ, [facility] [id number] 73 [place] 02:30:00 04:38:00 WAS -[id number] Critical access hospital 2013-01-19 2013-01-19 Emergency ER YARIMA, [facility] [id number] [place] 17:08:00 20:36:00 KONRAD -[id number] Critical access hospital 2012-08-16 2012-08-17 Emergency ER TAVAREZ, [facility] [id number] 73 [place] 22:39:00 00:41:00 WAS -[id number] Critical access hospital 2012-06-15 2012-06-15 Outpatient EL Brea, [facility] [id number] [place] 09:45:00 09:45:00 Jake -[id number] Critical access hospital 2012-05-08 2012-05-08 Emergency ER TAVAREZ, [facility] [id number] [address] [place] 00:04:00 01:17:00 ANDRIY -[id number] Critical access hospital 2011-12-01 2011-12-03 Inpatient EL Brea, [facility] [id number] [place] 05:08:00 09:00:00 Jake -[id number] Critical access hospital 2011-11-23 2011-11-23 Emergency ER Brea, [facility] [id number] [place] 15:02:00 15:10:00 Jake -[id number] Critical access hospital 2011-11-03 2011-11-03 Emergency ER Brea, [facility] [id number] 73 [place] 18:41:00 23:00:00 Jake -[id number] Critical access hospital 2011-10-02 2011-10-02 Emergency ER Brea, [facility] [id number] [address] [place] 01:09:00 03:00:00 Jake -[id number] Critical access hospital 2011-05-24 2011-05-24 Emergency ER UGORJI, [facility] [id number] 73 [place] 14:51:00 16:29:00 KIAH -[id number] Critical access hospital 2011-05-16 2011-05-16 Emergency ER Brea, [facility] [id number] [address] [place] 10:45:00 17:15:00 Jake -[id number] Critical access hospital 2011-04-30 2011-04-30 Emergency ER TAVAREZ, [facility] [id number] [address] [place] 17:46:00 18:47:00 ANDRIY -[id number] Critical access hospital 2011-04-01 2011-04-02 Emergency ER IMMARAJ, [facility] [id number] [place] 18:26:00 00:50:00 ETHAN -[id number] marivel RUST 2010-06-30 2010-06-30 Emergency ER BUZZARD, [facility] [id number] [place] 11:33:00 13:35:00 ABEL -[id number] Critical access hospital 2010-01-02 2010-01-05 Inpatient ER Becca, [facility] [id number] [place] 20:40:00 13:30:00 Lorie -[id number] Critical access hospital 2009-12-19 2009-12-19 Emergency ER Becca, [facility] [id number] [place] 13:59:00 13:59:00 Lorie -[id number] Critical access hospital 2009-11-18 2009-11-18 Emergency ER Brea, [facility] [id number] 73 [place] 18:05:00 18:05:00 Jake -[id number] Critical access hospital 2009-05-31 2009-05-31 Emergency ER UGORJI, [facility] [id number] [address] [place] 03:40:00 05:48:00 CLEMENT -[id number] Critical access hospital 2009-05-19 2009-05-19 Emergency ER UGORJI, [facility] [id number] [address] [place] 13:00:00 14:35:00 CLEMENT -[id number] Critical access hospital 2009-01-30 2009-01-30 Emergency ER UGORJI, [facility] [id number] 73 [place] 16:11:00 19:37:00 CLEMENT -[id number] Critical access hospital 1998-12-20 1998-12-20 Outpatient EL VALLOPPILLI [facility] [id number] [place] 10:34:00 10:34:00 L AMMINI -[id number] Critical access hospital 1998-09-28 1998-09-28 [id number] [place] 15:09:00 16:03:00 ALEC, [facility][id number] [facility] Results Test Description Test Time Test Comments [...] or Plasma (test code = 142 mmol/L 289-159 7514-2) Potassium [Moles/volume] in Serum or Plasma (test code 4.3 mmol/L 3.5-5.2 = 2823-3) Chloride [Moles/volume] in Serum or Plasma (test code = 106 mmol/L 96-106 2075-0) Carbon dioxide, total [Moles/volume] in Serum or Plasma 20 mmol/L 20-29 (test code = 2027-9) Calcium [Mass/volume] in Serum or Plasma (test code = 9.3 mg/dL 8.7-10.2 66594-3) Protein [Mass/volume] in Serum or Plasma (test code = 7.5 g/dL 6.0-8.5 2885-2) Albumin [Mass/volume] in Serum or Plasma (test code = 4.3 g/dL 3.9-5.0 1751-7) Globulin [Mass/volume] in Serum by calculation (test 3.2 g/dL 1 .5-4.5 code = 66502-6) Albumin/Globulin [Mass Ratio] in Serum or Plasma (test 1.3 1.2-2.2 code = 1759-0) Bilirubin.total [Mass/volume] in Serum or Plasma (test 0.8 mg/dL 0.0-1.2 code = 1974-2) Alkaline phosphatase [Enzymatic activity/volume] in 67 IU/L 44 -121 Serum or Plasma (test code = 6768-6) Aspartate aminotransferase [Enzymatic activity/volume] 38 IU/L 0-40 in Serum or Plasma (test code = 1920-8) Alanine aminotransferase [Enzymatic activity/volume] in 63 IU/L 0-32 H Serum or Plasma (test code = 1742-6) [facility] 2000 [facility] - Serum 2022-01-17 00:00:00 Test Item Value Reference Range Interpretation Comments Hepatitis A virus IgM Ab negative negative [Presence] in Serum or Plasma by Immunoassay (test code = 06679-0) Hepatitis B virus surface Ag negative negative [Presence] in Serum or Plasma by Immunoassay (test code = 5196-1) Hepatitis B virus core IgM Ab negative negative [Presence] in Serum or Plasma by Immunoassay (test code = 77131-4) Hepatitis C virus Ab 0.1 s/co ratio 0.0-0.9 Signal/Cutoff in Serum or Plasma by Immunoassay (test code = 85134-8) [facility] HospitalHemoglobin A1c/Hemoglobin.total in [id number] 00:00:00 Test Item Value Reference Range Interpretation Comments Hemoglobin A1c/Hemoglobin.total in 5.1 % 4.8-5.6 Blood (test code = 4548-4) Glucose mean value [Mass/volume] in 100 mg/dL Blood Estimated from glycated hemoglobin (test code = 73289-2) [facility] HospitalHepatitis B virus surface Ab [Units/volume] in [id number] 00:00:00 Test Item Value Reference Range Interpretation Comments Hepatitis B virus <3.1 See_Comment L [Automate d message] The surface Ab system which ge nerated [Units/volume] in Serum this result transmitted (test code = 95619-3) refere nce range: immunity>9.9. T he reference range was not used to interpr et this result as normal/abnormal . [facility]25-Hydroxyvitamin D3+25- Hydroxyvitamin D2 [Mass/volume] in Serum or [id number] 00:00:00 Test Item Value Reference Range Interpretation Comments 25-Hydroxyvitamin 18.8 NG/mL 30.0-100.0 L D3+25-Hydroxyvitamin D2 [Mass/volume] in Serum or Plasma (test code = 56192-8) [facility] HospitalFree T4 and TSH panel - Serum or [id number] 00:00:00 Test Item Value Reference Range Interpretation Comments Thyrotropin [Units/volume] in 1.950 uIU/mL 0.450-4.500 Serum or Plasma by Detection limit <= 0.005 mIU/L (test code = 76054-6) Thyroxine (T4) free 1.02 NG/dL 0.82-1.77 [Mass/volume] in Serum or Plasma (test code = 3024-7) [facility] W Auto Differential panel - Blood 2021-09-13 [...] = 706-2) immature cells (test code = supervisor fabrication and assembly immature cells) Neutrophils [#/volume] in Blood 5.6 [...] Blood by Automated count (test code = 66886-2) Immature granulocytes 0.0 x10e3/uL 0.0-0.1 [#/volume] in Blood by Automated count (test code = 41965-6) Nucleated erythrocytes/100 [employer] and assembly leukocytes [Ratio] in Blood by Automated count (test code = 98538-1) Morphology [Interpretation] in [employer] assembly Blood Narrative (test code = 50756-0) [facility] ProgramComprehensive metabolic 2000 panel - Serum or [id number] 00:00:00 Test Item Value Reference Range Interpretation [...] by Creatinine-based formula (CKD-EPI) (test code = 33530-4) Glomerular filtration 134 mL/min/1.73 >59 rate/1.73 sq M.predicted among blacks [Volume Rate/Area] in Serum, Plasma or Blood by Creatinine-based formula (CKD-EPI) (test code = 59718-6) Urea nitrogen/Creatinine 23 9-23 [Mass Ratio] in Serum or Plasma (test code = 3097-3) Sodium [Moles/volume] in 139 mmol/L 134-144 Serum or Plasma (test code = 2951-2) Potassium [Moles/volume] in 4.1 mmol/L 3.5-5.2 Serum or Plasma (test code = 2823-3) Chloride [Moles/volume] in 104 mmol/L 96-106 Serum or Plasma (test code = 2075-0) Carbon dioxide, total 23 mmol/L 20-29 [Moles/volume] in Serum or Plasma (test code = 2027-) Calcium [Mass/volume] in 9.4 mg/dL 8.7-10.2 Serum or Plasma (test code = 41560-4) Protein [Mass/volume] in 7.8 g/dL 6.0-8.5 Serum or Plasma (test code = 2885-2) Albumin [Mass/volume] in 4.7 g/dL 3.9-5.0 Serum or Plasma (test code = 1751-7) Globulin [Mass/volume] in 3.1 g/dL 1.5-4.5 Serum by calculation (test code = 88582-9) Albumin/Globulin [Mass Ratio] 1.5 1.2-2.2 in Serum or Plasma (test code = 1759-0) Bilirubin.total [Mass/volume] 0.6 mg/dL 0.0-1.2 in Serum or Plasma (test code = 1974-2) Alkaline phosphatase 76 IU/L 44-121 [Enzymatic activity/volume] in Serum or Plasma (test code = 6768-6) Aspartate aminotransferase 45 IU/L 0-40 H [Enzymatic activity/volume] in Serum or Plasma (test code = 1920-8) Alanine aminotransferase 85 IU/L 0-32 H [Enzymatic activity/volume] in Serum or Plasma (test code = 1742-6) [facility] HospitalLipid 1996 panel - Serum or Plasma 2021-09-13 00:00:00 Test Item Value Reference Range Interpretation Comments Cholesterol [Mass/volume] in Serum 168 mg/dL 100-199 or Plasma (test code = 2092-3) Triglyceride [Mass/volume] in Serum 124 mg/dL 0-149 or Plasma (test code = 2571-8) Cholesterol in HDL [Mass/volume] in 48 mg/dL >39 Serum or Plasma (test code = 2084-9) Cholesterol in VLDL [Mass/volume] 22 mg/dL 5-40 in Serum or Plasma by calculation (test code = 45236-1) Cholesterol in LDL [Mass/volume] in 98 mg/dL 0-99 Serum or Plasma by calculation (test code = 16644-4) Laboratory comment [Text] in Report supervisor fabrication and assembly Narrative (test code = 75656-4) [facility] HospitalReagin Ab [Presence] in Serum by RPR 2021-09-13 00:00:00 Test Item Value Reference Range Interpretation Comments Reagin Ab [Presence] in Serum by non reactive non reactive RPR (test code = 22377-3) [facility] HospitalHIV 1+2 Ab+HIV1 p24 Ag [Presence] in Serum or Plasma by [id number] 00:00:00 Test Item Value Reference Range Interpretation Comments HIV 1+2 Ab+HIV1 p24 Ag non reactive non reactive [Presence] in Serum or Plasma by Immunoassay (test code = 85936-8) [facility] HospitalHepatitis B virus surface Ag [Presence] in Serum or Plasma by [id number] 00:00:00 Test Item Value Reference Range Interpretation Comments Hepatitis B virus surface Ag negative negative [Presence] in Serum or Plasma by Immunoassay (test code = 5196-1) [facility] Hospitalcardiovascular assessment panel, [id number] 00:00:00 Test Item Value Reference Range Interpretation Comments Interpretation and review of laboratory note results (test code = 49564-9) Report (test code = 66568-4) . [facility] HospitalCytology report of Cervical or vaginal smear or scraping Cyto stain.thin [id number] 00:00:00 Test Item Value Reference Range Interpretation Comments age gdln acog testing (test code = 21-29 age gdln acog testing) Cytology report of Cervical or comment vaginal smear or scraping Cyto stain (test code = 92862-4) Statement of adequacy comment [Interpretation] of Cervical or vaginal smear or scraping by Cyto stain (test code = 49419-7) Traffic Monitor Specialist who read Cyto stain of comment Cervical or vaginal smear or scraping (test code = 58750-9) QC reviewed by: (test code = QC comment reviewed by:) Microscopic observation [Identifier] . in Unspecified specimen by Other stain (test code = 83898-2) note: (test code = note:) comment Cytology report of Cervical or comment vaginal smear or scraping Cyto stain.thin prep (test code = 05582-8) Chlamydia trachomatis rRNA negative negative [Presence] in Cervix by PILY with probe detection (test code = 57145-4) Neisseria gonorrhoeae rRNA negative negative [Presence] in Cervix by PILY with probe detection (test code = 21737-4) Trichomonas vaginalis rRNA negative negative [Presence] in Unspecified specimen by PILY with probe detection (test code = 80879-6) [facility] HospitalUrinalysis macro (dipstick) panel - [id number] 16:54:00 Test Item Value Reference Range Interpretation Comments Leukocytes (test code = Leukocytes) neg Nitrite (test code = Nitrite) neg Urobilinogen (test code = 4.0 Urobilinogen) Protein (test code = Protein) neg pH (test code = pH) 6.0 Blood (test code = Blood) neg Specific [place] (test code = 1.015 Specific [place]) Ketone (test code = Ketone) 15mg/dl Bilirubin (test code = Bilirubin) neg Glucose (test code = Glucose) neg [facility] HospitalFree T4 and TSH panel - Serum or [id number] 00:00:00 Test Item Value Reference Range Interpretation Comments TSH, third generation (test code 2.130 uIU/mL 0.400-4.100 = TSH, third generation) free T4 (thyroxine) (test code = 1.10 NG/dL 0.80-1.90 free T4 (thyroxine)) [facility]25-Hydroxyvitamin D2+25- Hydroxyvitamin D3 [Mass/volume] in Serum or [id number] 00:00:00 Test Item Value Reference Range Interpretation Comments vitamin D, 25 oh (test code = 14 NG/mL see below L vitamin D, 25 oh) [facility] HospitalLipid 1996 panel - Serum or Plasma 2019-11-23 00:00:00 [...] = 1.92 ratio <3.22 risk ratio LDL/HDL) [facility] HospitalComprehensive metabolic 2000 panel - Serum or [id number] 00:00:00 Test Item Value Reference Range Interpretation [...] (test code = ALT) 36 U/L 5-40 [facility] HospitalHemoglobin A1c/Hemoglobin.total in [id number] 00:00:00 Test Item Value Reference Range Interpretation Comments Hemoglobin A1c/Hemoglobin.total in 5.2 % 4.2-5.6 Blood (test code = 4548-4) [facility] HospitalFolate+Cyanocobalamin [Interpretation] in Serum or [id number] 00:00:00 Test Item Value Reference Range Interpretation Comments vitamin B-12 (test code = vitamin 751 pg/mL 200-950 B-12) folic acid (test code = folic acid) 8.9 ug/L see below [facility] HospitalCBC W Auto Differential panel - Blood 2019-11-22 [...] code = 347 K/uL 130-400 platelet count) [facility] HospitalUrinalysis macro (dipstick) panel - [id number] 13:51:00 Test Item Value Reference Range Interpretation Comments Leukocytes (test code = Leukocytes) neg Nitrite (test code = Nitrite) positive Urobilinogen (test code = neg Urobilinogen) Protein (test code = Protein) neg pH (test code = pH) 6.5 Blood (test code = Blood) neg Specific [place] (test code = 1.025 Specific [place]) Ketone (test code = Ketone) neg Bilirubin (test code = Bilirubin) 0.2 Glucose (test code = Glucose) neg [facility] ProgramBacterial vaginosis and vaginitis DNA panel [Presence] - [...] and target amplification method (test code = 53331-1) Chlamydia trachomatis rRNA negative negative [Presence] in Unspecified specimen by Probe and target amplification method (test code = 60797-8) Neisseria gonorrhoeae rRNA negative negative [Presence] in Unspecified specimen by Probe and target amplification method (test code = 07533-8) [facility] HospitalBacteria identified in Urine by [id number] 00:00:00 Test Item Value Reference Range Interpretation Comments culture, urine (test specimen number: code = culture, [id number] urine) [facility] HospitalBacteria identified in Urine by [id number] 00:00:00 Test Item Value Reference Range Interpretation Comments culture, urine (test specimen number: code = culture, [id number] urine) [facility]25-Hydroxyvitamin D [Mass/volume] in Serum or [id number] 00:00:00 Test Item Value Reference Range Interpretation Comments vitamin D, 25 oh (test code = 13 NG/mL see below L vitamin D, 25 oh) [facility] HospitalFree T4 and TSH panel - Serum or [id number] 00:00:00 Test Item Value Reference Range Interpretation Comments TSH, third generation (test code 1.930 uIU/mL 0.400-4.100 = TSH, third generation) free T4 (thyroxine) (test code = 1.02 NG/dL 0.80-1.90 free T4 (thyroxine)) [facility] HospitalCB W Auto Differential panel - Blood 2019-05-19 [...] code = 292 K/uL 130-400 platelet count) [facility]25-Hydroxyvitamin D [Mass/volume] in Serum or [id number] 00:00:00 Test Item Value Reference Range Interpretation Comments vitamin D, 25 oh (test code = 13 NG/mL see below L vitamin D, 25 oh) [facility] HospitalFree T4 and TSH panel - Serum or [id number] 00:00:00 Test Item Value Reference Range Interpretation Comments TSH, third generation (test code 1.930 uIU/mL 0.400-4.100 = TSH, third generation) free T4 (thyroxine) (test code = 1.02 NG/dL 0.80-1.90 free T4 (thyroxine)) [facility] HospitalCBC W Auto Differential panel - Blood 2019-05-19 [...] code = 292 K/uL 130-400 platelet count) [facility] HospitalHemoglobin A1c/Hemoglobin.total in [id number] 00:00:00 Test Item Value Reference Range Interpretation Comments Hemoglobin A1c/Hemoglobin.total in 4.9 % 4.2-5.6 Blood (test code = 4548-4) [facility] HospitalHemoglobin A1c/Hemoglobin.total in [id number] 00:00:00 Test Item Value Reference Range Interpretation Comments Hemoglobin A1c/Hemoglobin.total in 4.9 % 4.2-5.6 Blood (test code = 4548-4) [facility] HospitalUrinalysis macro (dipstick) panel - [id number] 15:16:12 Test Item Value Reference Range Interpretation Comments Leukocytes (test code = 2+ Leukocytes) Nitrite (test code = Nitrite) negative Urobilinogen (test code = negative Urobilinogen) Protein (test code = Protein) 0.15 pH (test code = pH) 6.0 Blood (test code = Blood) negative Specific [place] (test code = 1.030 Specific [place]) Ketone (test code = Ketone) negative Bilirubin (test code = Bilirubin) negative Glucose (test code = Glucose) negative Appearance (test code = clear Appearance) Color (test code = Color) dark yellow [facility] HospitalUrinalysis macro (dipstick) panel - [id number] 15:16:12 Test Item Value Reference Range Interpretation Comments Leukocytes (test code = 2+ Leukocytes) Nitrite (test code = Nitrite) negative Urobilinogen (test code = negative Urobilinogen) Protein (test code = Protein) 0.15 pH (test code = pH) 6.0 Blood (test code = Blood) negative Specific [place] (test code = 1.030 Specific [place]) Ketone (test code = Ketone) negative Bilirubin (test code = Bilirubin) negative Glucose (test code = Glucose) negative Appearance (test code = clear Appearance) Color (test code = Color) dark yellow [facility]
[2022-11-16 03:33] LABS: Urine Blood Trace-intact (Negative); Urine Glucose Negative (Negative); Urine Protein Negative (Negative); Urine Specific Gravity >=1.030 (1.005-1.030)
[2022-11-16] MEDS ORDERED: KETOROLAC 30 MG/ML INJ ONE (03:38)
[2022-11-16] MEDS ORDERED: LIDOCAINE 4% PATCH ONE (03:38)
[2022-11-16] MEDS ORDERED: methocarbamoL 500 MG TAB ONE (03:38)
--- NOTE | 2022-11-16 03:40 | ER ---
Nurse's Notes [facility] [place] Name: Colleen Vallejo Age: 27 yrs Sex: Female : 1995 Arrival Date: 11/16/2022 Time: 02:01 Bed 20 Private MD: Diagnosis: Acute bilateral low back pain Presentation: 11/16 02:06 Chief complaint: Patient states: "My legs are cramping so bad. Around 11 I was laying tw5 in bed and then my both my legs just started. It is especially bad around my butt area.". Coronavirus screen: Vaccine status: Patient reports being unvaccinated. Ebola Screen: Patient negative for fever greater than or equal to 101.5 degrees Fahrenheit, and additional compatible Ebola Virus Disease symptoms Patient denies exposure to infectious person. Patient denies travel to an Ebola-affected area in the 21 days before illness onset. Initial Sepsis Screen: Does the patient meet any 2 criteria? HR > 90 bpm. Does the patient have a suspected source of infection? No. Patient's initial sepsis screen is negative. Risk Assessment: Do you want to hurt yourself or someone else? Patient reports no desire to harm self or others. Onset of symptoms was November 15, 2022 at 23:00. 02:06 Method Of Arrival: Ambulatory tw5 02:06 Acuity: ARMANDO 3 tw5 Triage Assessment: 02:08 General: Appears uncomfortable, Behavior is calm, cooperative, appropriate for age. tw5 Pain: Complains of pain in right leg and left leg Pain currently is 10 out of 10 on a pain scale. 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 - Social history:: Smoking status: Patient denies any tobacco usage or history of. Screenin:09 [facility] ED Fall Risk Assessment (Adult) History of falling in the last 3 months, tw5 including since admission. Abuse screen: Denies threats or abuse. Denies injuries from another. 03:42 Nutritional screening: No deficits noted. Tuberculosis screening: No symptoms or risk vc1 factors identified. Assessment: 03:25 Reassessment: Pt states she doesn't want to take a whole bunch of medication. vc1 Vital Signs: 02:06 BP 137 / 82; Pulse 97; Resp 18; Temp 97.8; Pulse Ox 97% ; Weight 81.65 kg; Height 5 ft. tw5 1 in. (154.94 cm); Pain 10/10; 02:06 Body Mass Index 34.01 (81.65 kg, 154.94 cm) tw5 ED Course: 02:01 Patient arrived in ED. jj6 02:08 Triage completed. tw5 02:08 Arm band placed on. tw5 02:10 Misty Eric MD is Attending Physician. sd2 02:30 Patient has correct armband on for positive identification. Bed in low position. Pulse vc1 ox on. NIBP on. 03:36 Urine Microscopic Only Sent. vc1 03:41 No provider procedures requiring assistance completed. Patient did not have IV access vc1 during this emergency room visit. Administered Medications: 03:41 Not Given (Patient Refused): Ketorolac 60 mg IM once vc1 03:41 Not Given (Patient Refused): Methocarbamol 1000 mg PO once vc1 03:41 Not Given (Patient Refused): Lidoderm Patch 5 % (700 mg/patch) 1 patches Topical once; vc1 leave on for 12 hours; cover most painful area; may cut into smaller pieces Medication: 03:42 VIS not applicable for this client. vc1 Outcome: 03:39 Discharge ordered by . sd2 03:41 Discharged to home ambulatory. vc1 03:41 Condition: good 03:41 Instructed on follow up and referral plans. 03:42 Patient left the ED. vc1 Signatures: Rocio Terry tw5 Jennifer Nuñez jj6 Annalee Sagastume RN RN vc1 Misty Eric MD MD sd2 Corrections: (The following items were deleted from the chart) 02:08 02:08 Home Meds: None; tw5 tw5
--- NOTE | 2022-11-16 03:40 | EDPHYS ---
Physician Documentation [facility] Name: Colleen Vallejo Age: 27 yrs Sex: Female : 1995 Arrival Date: 11/16/2022 Time: 02:01 Bed 20 Private MD: ED Physician Misty Eric HPI: 11/16 02:58 This 27 yrs old Female presents to ER via Ambulatory with complaints of Leg sd2 Pain. 02:58 27 yo F presents with CC of bilateral lower extremity and low back pain that started sd2 around 11PM this evening while laying in bed. Pt denies any trauma, fall, lifting or significant injury. Reports pain starts in lower back on both sides and radiates down both legs causing a pain similar to a cramping sensation. States has had some lower back pain and issues in the past but can normally stretch it out and it goes away which did not happen this time. 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 - Social history:: Smoking status: Patient denies any tobacco usage or history of. ROS: 02:58 Constitutional: Negative for fever, chills, and weight loss, Eyes: Negative for injury, sd2 pain, redness, and discharge, Cardiovascular: Negative for chest pain, palpitations, and edema, Respiratory: Negative for shortness of breath, cough, wheezing. Abdomen/GI: Negative for abdominal pain, nausea, vomiting, diarrhea. : Positive for dysuria and urinary frequency. Exam: 02:58 Constitutional: This is a well developed, well nourished patient who is awake, alert, sd2 and in moderate distress 2/2 pain. Head/Face: Normocephalic, atraumatic. Eyes: EOMI, normal conjunctiva bilaterally Chest/axilla: Normal chest wall appearance and motion. Nontender with no deformity. Cardiovascular: Regular rate and rhythm with a normal S1 and S2. No gallops, murmurs, or rubs. 2+ distal pulses. Respiratory: Lungs have equal breath sounds bilaterally, clear to auscultation and percussion. No rales, rhonchi or wheezes noted. No increased work of breathing, no retractions or nasal flaring. Abdomen/GI: Soft, non-tender, with normal bowel sounds. No guarding or rebound. No evidence of tenderness throughout. Back: No spinal tenderness. No costovertebral tenderness. Full range of motion. TTP of bilateral gluteal areas over the sciatic nerve. Skin: Warm, dry with normal turgor. Normal color with no rashes, no lesions, and no evidence of cellulitis. MS/ Extremity: Pulses equal, no cyanosis. Neurovascular intact. Full, normal range of motion. Ambulatory without difficulty. Neuro: Awake and alert, GCS 15, oriented to person, place, time, and situation. Cranial nerves II-XII grossly intact. Motor strength 5/5 in all extremities. Sensory grossly intact. Vital Signs: 02:06 BP 137 / 82; Pulse 97; Resp 18; Temp 97.8; Pulse Ox 97% ; Weight 81.65 kg; Height 5 ft. tw5 1 in. (154.94 cm); Pain 10/10; 02:06 Body Mass Index 34.01 (81.65 kg, 154.94 cm) tw5 MDM: 02:11 Patient medically screened. sd2 02:58 Differential diagnosis: Sciatica, neuropathic pain, UTI among others. Data reviewed: sd2 vital signs, nurses notes. I considered the following discharge prescriptions or medication management in the emergency department Medications were administered in the Emergency Department. See NOV. 11/16 02:56 Order name: Urine Microscopic Only sd2 11/16 03:33 Order name: Urine Dipstick-Ancillary [facility] 11/16 02:56 Order name: Urine Dipstick-Ancillary (obtain specimen); Complete Time: 03:35 sd2 11/16 02:56 Order name: Urine Test (obtain specimen); Complete Time: 03:35 sd2 Administered Medications: 03:41 Not Given (Patient Refused): Ketorolac 60 mg IM once vc1 03:41 Not Given (Patient Refused): Methocarbamol 1000 mg PO once vc1 03:41 Not Given (Patient Refused): Lidoderm Patch 5 % (700 mg/patch) 1 patches Topical once; vc1 leave on for 12 hours; cover most painful area; may cut into smaller pieces Disposition Summary: 11/16/22 03:39 Discharge Ordered Location: Home sd2 Problem: new sd2 Symptoms: are unchanged sd2 Condition: Stable sd2 Diagnosis - Acute bilateral low back pain sd2 Followup: sd2 - With: Private Physician - When: 1 - 2 days - Reason: Recheck today's complaints, Continuance of care, Re-evaluation by your physician Discharge Instructions: - Discharge Summary Sheet sd2 - Acute Back Pain, Adult sd2 Forms: - Medication Reconciliation Form sd2 - Thank You Letter sd2 - Antibiotic Education sd2 - Prescription Opioid Use sd2 Signatures: Dispatcher [employer] Rocio Call tw5 Misty Eric MD MD sd2 Annalee Sagastume RN vc1 Corrections: (The following items were deleted from the chart) 02:08 02:08 Home Meds: None; tw5 tw5
[2022-11-16 03:47] VITALS: BP 137/82; TEMP 97.8; O2SAT 97
[2022-11-16 03:57] LABS: Urine Bacteria <20 /HPF (<20); Urine Mucus 2+ /HPF (None Seen); Urine RBC <5 /HPF (None Seen)
== END 2022-11-16 03:42 | disposition home or self-care (01) ==
LOC: ER 01:56
DX: M54.50 Low back pain, unspecified (principal)
CPT/HCPCS: 81003; 81015; 99283; J2001